=== PATIENT | male | born 1945 | race Caucasian/White ===

== ENCOUNTER 2020-02-17 17:07 | Emergency (ER) | payer MEDICARE, BC, MEDICAID ==
[2020-02-17] MEDS ORDERED: Sodium Chloride 0.9% 10 ML Syringe FLUSH PRN (17:19)
--- NOTE | 2020-02-17 17:23 | EDM.PDOC ---
ED HPI GENERAL MEDICAL PROBLEM - General Chief Complaint: Fever Stated Complaint: FEVER Time Seen by Provider: 02/17/20 17:15 Source of Information: Reports: Patient History Limitations: Reports: No Limitations - History of Present Illness INITIAL COMMENTS - FREE TEXT/NARRATIVE: 74 YO WM PRESENTS TO ER COMPLAINING OF FEVER AND HEADACHE WHICH BEGAN TODAY. PT REPORTS HE FELT FINE THIS AM WHEN HE WOKE BUT DEVELOPED A HEADACHE AROUND LUNCHTIME. PT HAD HIS TEMP CHECKED AND WAS FOUND TO BE FEBRILE PROMPTING ER EVALUATION. PT DENIES COUGH/CONGESTION, NO SHORTNESS OF BREATH OR CHEST PAIN. PT STATES HE FEELS BETTER AFTER MOTRIN. PT DENIES DYSURIA OR URINARY FREQUENCY. PT DENIES N/V OR ABDOMINAL PAIN. Onset: Today Location: Reports: Generalized Severity: Mild Improves with: Reports: Other (MOTRIN) Worsens with: Reports: None Associated Symptoms: Reports: Fever/Chills. Denies: Chest Pain, Cough, Malaise, Nausea/Vomiting, Shortness of Breath, Weakness - Related Data Allergies Allergy/AdvReac Type Severity Reaction Status Date / Time Penicillins Allergy Cannot Verified 02/17/20 18:37 Remember povidone-iodine Allergy Cannot Verified 02/17/20 18:37 [From Betadine] Remember soap [From Betadine] Allergy Cannot Verified 02/17/20 18:37 Remember tramadol Allergy Cannot Verified 02/17/20 18:37 Remember Home Meds: Home Meds Acetaminophen 650 mg PO Q4H PRN 11/26/17 [History] Acetaminophen [Tylenol] 650 mg PO BID@,18 11/26/17 [History] Aspirin [Ecotrin EC] 325 mg PO DAILY 11/26/17 [History] Dextran 70/Hypromellose [Artificial Tears] 2 drop EYEBOTH QID PRN 11/26/17 [History] Donepezil HCl [Aricept] 10 mg PO DAILY 11/26/17 [History] LORazepam [Ativan] 0.5 mg IM DAILY PRN 11/26/17 [History] Lisinopril 10 mg PO DAILY 11/26/17 [History] Loratadine [Claritin] 10 mg PO DAILY 11/26/17 [History] Menthol/Zinc Oxide [Calmoseptine] 1 applic TOP BID PRN 11/26/17 [History] Miconazole Nitrate [Athlete's Foot] 1 applic TOP BID PRN 11/26/17 [History] Multivitamin [Daily Multiple Vitamin] 1 tab PO DAILY 11/26/17 [History] OXcarbazepine [Trileptal] 450 mg PO BID@11/26/17 [History] Trolamine Salicylate [Asper-Flex] 1 applic TOP Q4H PRN 11/26/17 [History] atorvaSTATin [Lipitor] 10 mg PO DAILY@1800 11/26/17 [History] levETIRAcetam [Keppra] 1,500 mg PO BID@11/26/17 [History] Melatonin 3 mg PO BEDTIME@199902/17/20 [History] Past Medical History HEENT History: Reports: Allergic Rhinitis, Cataract, Impaired Vision, Other (See Below) Other HEENT History: Dry eye syndrome. Patient wears glasses. Nasal fracture as below. Cardiovascular History: Reports: High Cholesterol, Hypertension, Other (See Below) Other Cardiovascular History: Mixed hyperlipidemia Respiratory History: Reports: Bronchitis, Recurrent, COPD, Intubation, Previous, Pulmonary Fibrosis Gastrointestinal History: Reports: Colon Polyp, Gastritis, GERD, Hiatal Hernia, Other (See Below) Other Gastrointestinal History: Tubular adenoma in the sigmoid colon area esophagitis Genitourinary History: Reports: BPH, Chronic Renal Insuffiency, UTI, Recurrent Musculoskeletal History: Reports: Arthritis, Back Pain, Chronic, Fracture, Osteoarthritis, Other (See Below) Other Musculoskeletal History: Nasal fracture in the Neurological History: Reports: Alzheimers Disease, Brain Injury, CVA, Seizure, Other (See Below) Other Neuro History: 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 Psychiatric History: Reports: Alzheimers Disease, Anxiety, Dementia, Depression Immunologic History: Reports: None Oncologic (Cancer) History: Reports: None Dermatologic History: Reports: Other (See Below) Other Dermatologic History: Recurrent tinea corporis, chronic left heel ulcer - Infectious Disease History Infectious Disease History: Reports: Measles, MRSA, Mumps, Other (See Below) Other Infectious Disease History: Patient is uncertain about childhood illnesses. History of MRSA of the left foot in 2017 - Past Surgical History Head Surgeries/Procedures: Reports: Shunt HEENT Surgical History: Reports: Adenoidectomy, Naso-Sinus Surgery, Oral Surgery, Tonsillectomy, Other (See Below) Other HEENT Surgeries/Procedures: Unknown type of nasal sinus surgery in the GI Surgical History: Reports: Appendectomy, Colonoscopy, Polypectomy, Other (See Below) Other GI Surgeries/Procedures: Appendectomy at about age 17. Colonoscopy in the excision of tubular adenoma from the sigmoid colon Male Surgical History: Reports: Circumcision, Vasectomy, Other (See Below) Other Male Surgeries/Procedures: Circumcision as an . Vasectomy in about 1976 Musculoskeletal Surgical History: Reports: None, Arthroscopic Knee, Arthroscopic Procedure, Other (See Below) Other Musculoskeletal Surgeries/Procedures:: Bilateral knee arthroscopic repair Oncologic Surgical History: Reports: None - Past Imaging History Past Imaging History: Reports: CAT Scan (CT of the head on 12/09/11), EEG (02/24/12), MRA (As below), MRI (MRI and MRA of the brain on 02/25/12), Venous Doppler (Venous Doppler study of the right leg on 05/13/16 with additional evaluation of the left leg on 10/17/16) Social & Family History - Family History Family Medical History: Unobtainable Cardiac: Reports: CAD, NM, Other (See Below) Other Cardiac Family History: Father with NM in his 60s Neurological: Reports: Other (See Below) Other Neurological Family History: Brother from meningitis at age 18 - Caffeine Use Caffeine Use: Reports: Soda. 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) ED ROS GENERAL - Review of Systems Review Of Systems: See Below Constitutional: Reports: Fever, Chills HEENT: Reports: No Symptoms Respiratory: Reports: No Symptoms Cardiovascular: Reports: No Symptoms Endocrine: Reports: No Symptoms GI/Abdominal: Reports: No Symptoms : Reports: No Symptoms Musculoskeletal: Reports: No Symptoms Skin: Reports: No Symptoms Neurological: Reports: No Symptoms Psychiatric: Reports: No Symptoms Hematologic/Lymphatic: Reports: No Symptoms Immunologic: Reports: No Symptoms ED EXAM, SEPSIS - Physical Exam Exam: See Below Exam Limited By: No Limitations General Appearance: Alert, WD/WN, No Apparent Distress Eye Exam: Bilateral Eye: PERRL Ears: Normal External Exam, Normal Canal, Hearing Grossly Normal, Normal TMs Nose: Normal Inspection, Normal Mucosa, No Blood Throat/Mouth: Normal Inspection, Normal Lips, Normal Teeth, Normal Gums, Normal Oropharynx, Normal Voice, No Airway Compromise Head: Atraumatic, Normocephalic Neck: Normal Inspection, Supple, Non-Tender, Full Range of Motion Respiratory/Chest: No Respiratory Distress, Lungs Clear, Normal Breath Sounds, No Accessory Muscle Use, Chest Non-Tender Cardiovascular: Normal Peripheral Pulses, Regular Rate, Rhythm, No Edema, No Gallop, No JVD, No Murmur, No Rub GI/Abdominal Exam: Normal Bowel Sounds, Soft, Non-Tender, No Organomegaly, No Distention, No Abnormal Bruit, No Mass, Pelvis Stable Back: Normal Inspection, Full Range of Motion, NT Extremities: Normal Inspection, Normal Range of Motion, Non-Tender, No Pedal Edema, Normal Capillary Refill Neurological: Alert, Oriented, CN II-XII Intact, Normal Cognition, Normal Gait, Normal Reflexes, No Motor/Sensory Deficits Psychiatric: Normal Affect, Normal Mood Skin: Warm, Dry, Intact, Normal Color, No Rash Lymphatic: Bilateral: No Adenopathy Course - Vital Signs Last Recorded V/S: Last Vital Signs Temp 38.6 C H 02/17/20 18:29 Pulse Resp BP Pulse Ox - Orders/Labs/Meds Orders: Active Orders 24 hr Category Date Time Status CULTURE BLOOD [BC] Stat Lab 02/17/20 15:25 Received CULTURE BLOOD [BC] Stat Lab 02/17/20 17:45 Received UA W/MICROSCOPIC [URIN] Stat Lab 02/17/20 18:34 Received Sodium Chloride 0.9% [Saline Flush] Med 02/17/20 17:19 Active 10 ml FLUSH Q8HR PRN Blood Culture x2 Reflex Set [OM.PC] Stat Oth 02/17/20 17:19 Ordered Isolation [COMM] Routine Oth 02/17/20 17:21 Ordered Saline Lock Insert [OM.PC] Stat Oth 02/17/20 17:19 Ordered Severe Sepsis Onset Time [OM.PC] Stat Ot 02/17/20 17:19 Ordered Medication Orders Sodium Chloride (Saline Flush) 10 ml FLUSH Q8HR PRN PRN Reason: keep vein open Labs: Laboratory Tests 02/17/20 02/17/20 02/17/20 Range/Units 15:25 15:25 15:25 WBC 11.06 H (5.00-10.00) 10^3/uL RBC 5.22 (4.50-6.00) 10^6/uL Hgb 16.2 (13.0-17.0) g/dL Hct 48.3 (40.0-52.0) % MCV 92.5 H (82.0-92.0) fL MCH 31.0 (27.0-31.0) pg MCHC 33.5 (32.0-36.0) g/dL RDW 12.2 (11.5-14.5) % Plt Count 312 (150-400) 10^3/uL MPV 9.0 (7.4-10.4) fL Immature Gran % (Auto) 0.5 (0.0-5.0) % Neut % (Auto) 86.3 H (50.0-70.0) % Lymph % (Auto) 6.6 L (20.0-40.0) % Frontier % (Auto) 6.4 (2.0-8.0) % Eos % (Auto) 0.0 L (1.0-3.0) % Baso % (Auto) 0.2 (0.0-1.0) % Neut # (Auto) 9.55 H (2.50-7.00) 10^3/uL Lymph # (Auto) 0.73 L (1.00-4.00) 10^3/uL Frontier # (Auto) 0.71 (0.10-0.80) 10^3/uL Eos # (Auto) 0.00 L (0.10-0.30) 10^3/uL Baso # (Auto) 0.02 (0.00-0.10) 10^3/uL Immature Gran # (Auto) 0.05 (0.00-0.50) 10^3/uL Sodium 139 (136-145) mmol/L Potassium 4.6 (3.3-5.3) mmol/L Chloride 101 (98-115) mmol/L Carbon Dioxide 31.2 (21.0-32.0) mmol/L Anion Gap 11.4 (5-15) mmol/L BUN 13 (6-25) mg/dL Creatinine 0.93 (0.51-1.17) mg/dL Est Cr Clr Drug Dosing TNP Estimated GFR (MDRD) > 60 mL/min Glucose 118 H (75 - 99) mg/dL Lactic Acid 1.7 (0.4-2.0) mmol/L Calcium 9.8 (8.7-10.3) mg/dL Total Bilirubin 0.4 (0.2-1.0) mg/dL AST 32 (15-37) U/L ALT 50 (12-78) U/L Alkaline Phosphatase 184 H (46-116) IU/L Total Protein 8.3 H (6.4-8.2) g/dL Albumin 4.02 (3.00-4.80) g/dL COVID-19 (JENNIFER) (NEGATIVE) 02/17/20 Range/Units 17:40 WBC (5.00-10.00) 10^3/uL RBC (4.50-6.00) 10^6/uL Hgb (13.0-17.0) g/dL Hct (40.0-52.0) % MCV (82.0-92.0) fL MCH (27.0-31.0) pg MCHC (32.0-36.0) g/dL RDW (11.5-14.5) % Plt Count (150-400) 10^3/uL MPV (7.4-10.4) fL Immature Gran % (Auto) (0.0-5.0) % Neut % (Auto) (50.0-70.0) % Lymph % (Auto) (20.0-40.0) % Frontier % (Auto) (2.0-8.0) % Eos % (Auto) (1.0-3.0) % Baso % (Auto) (0.0-1.0) % Neut # (Auto) (2.50-7.00) 10^3/uL Lymph # (Auto) (1.00-4.00) 10^3/uL Frontier # (Auto) (0.10-0.80) 10^3/uL Eos # (Auto) (0.10-0.30) 10^3/uL Baso # (Auto) (0.00-0.10) 10^3/uL Immature Gran # (Auto) (0.00-0.50) 10^3/uL Sodium (136-145) mmol/L Potassium (3.3-5.3) mmol/L Chloride (98-115) mmol/L Carbon Dioxide (21.0-32.0) mmol/L Anion Gap (5-15) mmol/L BUN (6-25) mg/dL Creatinine (0.51-1.17) mg/dL Est Cr Clr Drug Dosing Estimated GFR (MDRD) mL/min Glucose (75 - 99) mg/dL Lactic Acid (0.4-2.0) mmol/L Calcium (8.7-10.3) mg/dL Total Bilirubin (0.2-1.0) mg/dL AST (15-37) U/L ALT (12-78) U/L Alkaline Phosphatase (46-116) IU/L Total Protein (6.4-8.2) g/dL Albumin (3.00-4.80) g/dL COVID-19 (JENNIFER) Negative (NEGATIVE) Meds: Medications Generic Name Dose Route Start Last Admin Trade Name Freq PRN Reason Stop Dose Admin Sodium Chloride 10 ml 02/17/20 17:19 Saline Flush FLUSH Q8HR PRN keep vein open Discontinued Medications Generic Name Dose Route Start Last Admin Trade Name Freq PRN Reason Stop Dose Admin Acetaminophen 1,000 mg 02/17/20 17:20 02/17/20 18:29 Tylenol Extra Strength PO 02/17/20 17:21 1,000 mg ONETIME ONE Administration Sodium Chloride 1,000 mls @ 1,000 mls/hr 02/17/20 17:19 02/17/20 18:23 Normal Saline IV 02/17/20 18:18 1,000 mls/hr BOLUS ONE Administration - Radiology Interpretation Free Text/Narrative:: CXR- NAD - Re-Assessments/Exams Free Text/Narrative Re-Assessment/Exam: 02/17/20 18:52 DISCUSSED CASE WITH RAYNE HASSAN- WILL SEND PAT[facility]. WILL GIVE ROCEPHIN 1G IV X 1 AND ORDER A UA OUTPATIENT SINCE CATH IN ER WAS UNSUCCESSFUL AND PATIENT STATES HE DOESN'T HAVE URGE TO GO. Departure - Departure Time of Disposition: 18:38 Disposition: DC/Tfer to SNF 03 Condition: Fair Clinical Impression: Fever Qualifiers: Encounter type: initial encounter Urinary tract infection Qualifiers: Urinary tract infection type: acute cystitis Hematuria presence: without hematuria Qualified Code(s): N30.00 - Acute cystitis without hematuria - Discharge Information Instructions: Urinary Tract Infection, Adult, Fever, Adult, [id number] Referrals: Dolores Warner MD [Primary Care Provider] - Forms: ED Department Discharge Additional Instructions: 1. DISCHARGE TO [facility] PER RAYNE HASSAN 2. ROCEPHIN 1G IM X 3 DAYS AT [facility] PER RAYNE GRAJEDA 3. SUPPORTIVE CARE 4. TYLENOL 1000MG EVERY 6 HOURS NEEDED FOR FEVER 5. COVID TEST-NEGATIVE Sepsis Event Note (ED) - Focused Exam Vital Signs: Vital Signs Temp 02/17/20 18:29 38.6 C H - My Orders Last 24 Hours: My Active Orders 02/17/20 15:25 CULTURE BLOOD [BC] Stat 02/17/20 17:19 Sodium Chloride 0.9% [Saline Flush] 10 ml FLUSH Q8HR PRN Blood Culture x2 Reflex Set [OM.PC] Stat Saline Lock Insert [OM.PC] Stat Severe Sepsis Onset Time [OM.PC] Stat 02/17/20 17:21 Isolation [COMM] Routine 02/17/20 17:45 CULTURE BLOOD [BC] Stat 02/17/20 18:34 UA W/MICROSCOPIC [URIN] Stat - Assessment/Plan Last 24 Hours: My Active Orders 02/17/20 15:25 CULTURE BLOOD [BC] Stat 02/17/20 17:19 Sodium Chloride 0.9% [Saline Flush] 10 ml FLUSH Q8HR PRN Blood Culture x2 Reflex Set [OM.PC] Stat Saline Lock Insert [OM.PC] Stat Severe Sepsis Onset Time [OM.PC] Stat 02/17/20 17:21 Isolation [COMM] Routine 02/17/20 17:45 CULTURE BLOOD [BC] Stat 02/17/20 18:34 UA W/MICROSCOPIC [URIN] Stat Assessment:: 1. FEVER 2. CEPHALGIA-MILD AND RESOLVED AFTER TYLENOL Plan: 1. DISCHARGE TO [facility] PER RAYNE HASSAN 2. ROCEPHIN 1G IM X 3 DAYS AT [facility] PER RAYNE GRAJEDA 3. SUPPORTIVE CARE 4. TYLENOL 1000MG EVERY 6 HOURS NEEDED FOR FEVER 5. COVID TEST-NEGATIVE
--- NOTE | 2020-02-17 18:03 | CR ---
[id number] RAD/RAD Chest PA or AP 1V EXAM: FRONTAL CHEST INDICATION: FEVER. COMPARISON: None. DISCUSSION: Hypoinflation with mild basilar atelectasis. No definite infiltrates. Normal heart size. Changes suggesting remote left acromioclavicular separation injury. IMPRESSION: 1. Low lung volumes. No definite infiltrates. Afshin King MD 02/17/20 [id number] Thank you for allowing us to participate in the care of your patient.
[2020-02-17 18:05] LABS: ANION GAP 11.4 mmol/L (5-15); CHLORIDE,CL 101 mmol/L (98-115); SODIUM,NA 139 mmol/L (136-145)
[2020-02-17] MEDS: Sodium Chloride 0.9% 1,000 ML IV ONE (18:23)
[2020-02-17] MEDS: Acetaminophen 500 MG Tab PO ONE (18:29)
[2020-02-17] MEDS: cefTRIAXone 1 GM Vial IVPUSH ONE (19:10)
== END 2020-02-17 19:30 ==
LOC: KA.ED 17:07
DX: N30.00 Acute cystitis without hematuria (principal); E78.00 Pure hypercholesterolemia, unspecified; J44.9 Chronic obstructive pulmonary disease, unspecified; R56.9 Unspecified convulsions; G30.9 Alzheimer's disease, unspecified; F02.80 Dementia in other diseases classified elsewhere, unspecified severity, without behavioral disturbance, psychotic disturbance, mood disturbance, and anxiety; Z20.828 Contact with and (suspected) exposure to other viral communicable diseases; Z88.0 Allergy status to penicillin; Z91.048 Other nonmedicinal substance allergy status; Z88.5 Allergy status to narcotic agent; Z79.82 Long term (current) use of aspirin; Z79.899 Other long term (current) drug therapy; I12.9 Hypertensive chronic kidney disease with stage 1 through stage 4 chronic kidney disease, or unspecified chronic kidney disease; N18.9 Chronic kidney disease, unspecified; Z86.73 Personal history of transient ischemic attack (TIA), and cerebral infarction without residual deficits
CPT/HCPCS: 36415; 71045; 80053; 81001; 83605; 85025; 87040; 87086; 87804; 96374; 99284; 99285-25; A9270-GY; J0696; J7030; U0002

== ENCOUNTER 2024-01-13 13:32 | Inpatient (IN) | payer MEDICARE, MEDICAID ==
[2024-01-13] MEDS ORDERED: Sodium Chloride 0.9% 10 ML Syringe FLUSH PRN (13:42)
[2024-01-13 13:58] LABS: BASOPHILS ABSOLUTE AUTO 0.03 10^3/uL (0.00-0.10); BASOPHILS PERCENT AUTO 0.2 % (0.0-1.0); EOSINOPHILS ABSOLUTE AUTO 0.13 10^3/uL (0.10-0.30); EOSINOPHILS PERCENT AUTO 0.9 % (1.0-3.0); HEMATOCRIT 52.3 % (40.0-52.0); HEMOGLOBIN 17.1 g/dL (13.0-17.0); IMMATURE GRAN ABSOLUTE AUTO 0.03 10^3/uL (0.00-0.50); IMMATURE GRAN PERCENT AUTO 0.2 % (0.0-5.0); LYMPHOCYTES ABSOLUTE AUTO 1.01 10^3/uL (1.00-4.00); LYMPHOCYTES PERCENT AUTO 7.3 % (20.0-40.0); MEAN CORPUSCULAR HEMOGLOBIN 31.4 pg (27.0-31.0); MEAN CORPUSCULAR HGB CONC 32.7 g/dL (32.0-36.0); MEAN CORPUSCULAR VOLUME 96.1 fL (82.0-92.0); MONOCYTES ABSOLUTE AUTO 1.61 10^3/uL (0.10-0.80); MONOCYTES PERCENT AUTO 11.7 % (2.0-8.0); NEUTROPHILS ABSOLUTE AUTO 10.95 10^3/uL (2.50-7.00); NEUTROPHILS PERCENT AUTO 79.7 % (50.0-70.0); PLATELET COUNT,PLT 311 10^3/uL (150-400); RED BLOOD CELL COUNT 5.44 10^6/uL (4.50-6.00); RED CELL DISTRIBUTION WIDTH 13.1 % (11.5-14.5); WHITE BLOOD CELL COUNT,WBC 13.76 10^3/uL (5.00-10.00)
[2024-01-13 14:38] LABS: ALBUMIN 3.29 g/dL (3.40-5.00); ANION GAP 11.5 mmol/L (5-15); BILIRUBIN TOTAL 1.1 mg/dL (0.2-1.0); CALCIUM 10.6 mg/dL (8.7-10.3); CARBON DIOXIDE,CO2 31.3 mmol/L (21.0-32.0); CREATININE 1.69 mg/dL (0.51-1.17); EST CRCL DRUG DOSING (CG) 37.8 mL/min; LACTIC ACID 2.3 mmol/L (0.4-2.0); POTASSIUM,K 3.8 mmol/L (3.5-5.1); PROTEIN TOTAL,TP 7.6 g/dL (6.4-8.2)
[2024-01-13] MEDS: Sodium Chloride 0.9% 100 ML IV SCH ×2 (15:03→23:00)
[2024-01-13] MEDS: Iopamidol 755 Mg/ML 100 ML Bottle IV ONE (15:03)
[2024-01-13] MEDS: Sodium Chloride 0.9% 1,000 ML IV ONE (15:08)
[2024-01-13] MEDS ORDERED: Heparin Sodium 5,000 Units/ML Vial IVPUSH ONE (15:54)
[2024-01-13] MEDS ORDERED: Heparin Sodium/D5W 250 ML IV SCH (16:15)
[2024-01-13] MEDS: Heparin Sodium 5,000 Units/ML Vial IVPUSH ONE (16:15)
[2024-01-13] MEDS: Heparin Sodium/D5W 250 ML IV STA (16:27)
[2024-01-13] MEDS ORDERED: Heparin Sodium/D5W 500 ML IV SCH (20:15)
[2024-01-13] MEDS ORDERED: Albuterol/Ipratropium 3.0-0.5 MG/3 ML Neb Soln NEB PRN (20:46)
[2024-01-13] MEDS ORDERED: PEG 400/Hypromellose/Glycerin 15 ML Bottle EYEBOTH PRN (20:51)
[2024-01-13] MEDS ORDERED: LORazepam Conc Solution 2 MG/ML 30 ML Bottle PO PRN (20:57)
[2024-01-13] MEDS ORDERED: MICONAZOLE NITRATE 71 GM TOP SCH (21:00)
[2024-01-13] MEDS: Heparin Sodium/D5W 250 ML IV SCH (21:18)
[2024-01-13] MEDS: Acetaminophen 325 MG Tab PO PRN (22:28)
[2024-01-13] MEDS: Donepezil 10 MG Tab PO SCH (22:28)
[2024-01-13] MEDS: atorvaSTATin 10 MG Tab PO SCH (22:30)
[2024-01-13] MEDS: cefTRIAXone 1 GM Vial IVPUSH SCH (22:33)
[2024-01-13] MEDS: Azithromycin 250 MG in Sodium Chloride 0.9% 250 ML IV SCH (22:33)
[2024-01-13] MEDS: Formoterol/Mometasone 100-5 MCG 8.8 GM Inhaler INH SCH (22:34)
[2024-01-14 07:30] LABS: BASOPHILS ABSOLUTE AUTO 0.03 10^3/uL (0.00-0.10); BASOPHILS PERCENT AUTO 0.3 % (0.0-1.0); EOSINOPHILS ABSOLUTE AUTO 0.38 10^3/uL (0.10-0.30); EOSINOPHILS PERCENT AUTO 3.8 % (1.0-3.0); HEMATOCRIT 46.9 % (40.0-52.0); HEMOGLOBIN 15.3 g/dL (13.0-17.0); IMMATURE GRAN ABSOLUTE AUTO 0.05 10^3/uL (0.00-0.50); IMMATURE GRAN PERCENT AUTO 0.5 % (0.0-5.0); LYMPHOCYTES ABSOLUTE AUTO 1.09 10^3/uL (1.00-4.00); LYMPHOCYTES PERCENT AUTO 10.8 % (20.0-40.0); MEAN CORPUSCULAR HEMOGLOBIN 31.7 pg (27.0-31.0); MEAN CORPUSCULAR HGB CONC 32.6 g/dL (32.0-36.0); MEAN CORPUSCULAR VOLUME 97.3 fL (82.0-92.0); MEAN PLATELET VOLUME 9.3 fL (7.4-10.4); MONOCYTES ABSOLUTE AUTO 1.18 10^3/uL (0.10-0.80); MONOCYTES PERCENT AUTO 11.7 % (2.0-8.0); NEUTROPHILS ABSOLUTE AUTO 7.35 10^3/uL (2.50-7.00); NEUTROPHILS PERCENT AUTO 72.9 % (50.0-70.0); PLATELET COUNT,PLT 255 10^3/uL (150-400); RED BLOOD CELL COUNT 4.82 10^6/uL (4.50-6.00); RED CELL DISTRIBUTION WIDTH 13.1 % (11.5-14.5); WHITE BLOOD CELL COUNT,WBC 10.08 10^3/uL (5.00-10.00)
[2024-01-14 07:54] LABS: ALBUMIN 2.69 g/dL (3.40-5.00); BILIRUBIN TOTAL 0.6 mg/dL (0.2-1.0); CALCIUM 9.7 mg/dL (8.7-10.3); CARBON DIOXIDE,CO2 31.8 mmol/L (21.0-32.0); CREATININE 1.13 mg/dL (0.51-1.17); EST CRCL DRUG DOSING (CG) 56.53 mL/min; POTASSIUM,K 3.8 mmol/L (3.5-5.1); PROTEIN TOTAL,TP 6.4 g/dL (6.4-8.2)
[2024-01-14] MEDS: Aspirin 81 MG Tab.Chew PO SCH (08:39)
[2024-01-14] MEDS: Tiotropium Bromide 4 GM Inhalation Spray (2.5mcg/1 dose; 10 doses) INH SCH (08:40)
[2024-01-14] MEDS: levETIRAcetam 500 MG Tab PO SCH (08:40)
[2024-01-14] MEDS: Multivitamins with Minerals/Iron/Folic Acid/Lycopene Tab PO SCH (08:40)
[2024-01-14] MEDS: Loratadine 10 MG Tab PO SCH (08:40)
[2024-01-14] MEDS: Lisinopril 10 MG Tab PO SCH (10:08)
[2024-01-14] MEDS: OXCARBAZEPINE 300 MG PO SCH (11:53)
[2024-01-14] MEDS: Enoxaparin 100 MG/1 ML Syringe SUBCUT SCH (11:53)
[2024-01-14] MEDS ORDERED: MICONAZOLE NITRATE 71 GM TOP SCH (13:30)
[2024-01-14] MEDS ORDERED: Sodium Chloride 0.9% 10 ML Syringe FLUSH PRN (15:39)
[2024-01-14] MEDS: MICONAZOLE NITRATE 71 GM TOP SCH (20:51)
[2024-01-15] MEDS: Furosemide 40 MG/4 ML VIAL IVPUSH ONE (11:14)
[2024-01-15] MEDS: Apixaban 5 MG Tab PO SCH (20:28)
[2024-01-16 07:25] LABS: BASOPHILS ABSOLUTE AUTO 0.02 10^3/uL (0.00-0.10); BASOPHILS PERCENT AUTO 0.3 % (0.0-1.0); EOSINOPHILS ABSOLUTE AUTO 0.41 10^3/uL (0.10-0.30); EOSINOPHILS PERCENT AUTO 5.9 % (1.0-3.0); HEMATOCRIT 38.8 % (40.0-52.0); HEMOGLOBIN 13.3 g/dL (13.0-17.0); IMMATURE GRAN ABSOLUTE AUTO 0.04 10^3/uL (0.00-0.50); IMMATURE GRAN PERCENT AUTO 0.6 % (0.0-5.0); LYMPHOCYTES ABSOLUTE AUTO 0.86 10^3/uL (1.00-4.00); LYMPHOCYTES PERCENT AUTO 12.4 % (20.0-40.0); MEAN CORPUSCULAR HEMOGLOBIN 32.4 pg (27.0-31.0); MEAN CORPUSCULAR HGB CONC 34.3 g/dL (32.0-36.0); MEAN CORPUSCULAR VOLUME 94.4 fL (82.0-92.0); MEAN PLATELET VOLUME 9.1 fL (7.4-10.4); MONOCYTES ABSOLUTE AUTO 1.14 10^3/uL (0.10-0.80); MONOCYTES PERCENT AUTO 16.5 % (2.0-8.0); NEUTROPHILS ABSOLUTE AUTO 4.45 10^3/uL (2.50-7.00); NEUTROPHILS PERCENT AUTO 64.3 % (50.0-70.0); PLATELET COUNT,PLT 231 10^3/uL (150-400); RED BLOOD CELL COUNT 4.11 10^6/uL (4.50-6.00); RED CELL DISTRIBUTION WIDTH 12.3 % (11.5-14.5); WHITE BLOOD CELL COUNT,WBC 6.92 10^3/uL (5.00-10.00)
[2024-01-16 07:51] LABS: ALBUMIN 2.39 g/dL (3.40-5.00); ANION GAP 8.5 mmol/L (5-15); BILIRUBIN TOTAL 0.5 mg/dL (0.2-1.0); CALCIUM 9.1 mg/dL (8.7-10.3); CARBON DIOXIDE,CO2 31.3 mmol/L (21.0-32.0); CREATININE 0.84 mg/dL (0.51-1.17); EST CRCL DRUG DOSING (CG) 76.04 mL/min; POTASSIUM,K 3.8 mmol/L (3.5-5.1); PROTEIN TOTAL,TP 5.9 g/dL (6.4-8.2)
[2024-01-16 18:02] LABS: KEPPRA 51 ug/mL (10-40)
[2024-01-17 21:07] LABS: OXCARB/ESLICRBMETAB 19 ug/mL (3-35)
== END 2024-01-16 13:27 | DRG 175 ==
LOC: KA.ED 13:32 → UNDOADMIN 17:41 → KA.MS 17:41
PROVIDERS: ADMIT Internal Medicine; ATTEND Internal Medicine
DX: I26.94 Multiple subsegmental thrombotic pulmonary emboli without acute cor pulmonale (principal); I26.99 Other pulmonary embolism without acute cor pulmonale; J18.9 Pneumonia, unspecified organism; R74.01 Elevation of levels of liver transaminase levels; R79.1 Abnormal coagulation profile; E78.00 Pure hypercholesterolemia, unspecified; I10 Essential (primary) hypertension; E78.5 Hyperlipidemia, unspecified; J96.01 Acute respiratory failure with hypoxia; Z88.5 Allergy status to narcotic agent; Z91.041 Radiographic dye allergy status; F02.83 Dementia in other diseases classified elsewhere, unspecified severity, with mood disturbance; F02.84 Dementia in other diseases classified elsewhere, unspecified severity, with anxiety; I69.151 Hemiplegia and hemiparesis following nontraumatic intracerebral hemorrhage affecting right dominant side; G40.909 Epilepsy, unspecified, not intractable, without status epilepticus; J44.9 Chronic obstructive pulmonary disease, unspecified; Z51.5 Encounter for palliative care; Z66 Do not resuscitate; H54.7 Unspecified visual loss; E78.2 Mixed hyperlipidemia; K21.9 Gastro-esophageal reflux disease without esophagitis; N40.0 Benign prostatic hyperplasia without lower urinary tract symptoms; I12.9 Hypertensive chronic kidney disease with stage 1 through stage 4 chronic kidney disease, or unspecified chronic kidney disease; N18.9 Chronic kidney disease, unspecified; M19.90 Unspecified osteoarthritis, unspecified site; G30.9 Alzheimer's disease, unspecified; Z88.0 Allergy status to penicillin; Z88.8 Allergy status to other drugs, medicaments and biological substances; Z91.048 Other nonmedicinal substance allergy status; Z79.82 Long term (current) use of aspirin; Z79.899 Other long term (current) drug therapy; Z87.81 Personal history of (healed) traumatic fracture; Z87.19 Personal history of other diseases of the digestive system; Z98.890 Other specified postprocedural states; Z90.89 Acquired absence of other organs; Z90.49 Acquired absence of other specified parts of digestive tract
CPT/HCPCS: 36415; 70450; 71045; 71275; 80053; 80177; 80183; 83605; 83880; 84484; 85025; 85379; 85730; 87040; 96361; 96365; 99285-25; A9270-GY; J0456; J0696; J1644; J1650; J1940; J3490; J7030; J7050; Q3014; Q9967

== ENCOUNTER 2024-11-05 12:25 | Inpatient (IN) | payer MEDICARE, MEDICAID ==
[2024-11-05 13:00] LABS: BASOPHILS ABSOLUTE AUTO 0.01 10^3/uL (0.00-0.10); BASOPHILS PERCENT AUTO 0.1 % (0.0-1.0); HEMOGLOBIN 12.6 g/dL (13.0-17.0); IMMATURE GRAN ABSOLUTE AUTO 0.14 10^3/uL (0.00-0.04); IMMATURE GRAN PERCENT AUTO 0.9 % (0.0-0.4); LYMPHOCYTES ABSOLUTE AUTO 0.76 10^3/uL (1.00-4.00); LYMPHOCYTES PERCENT AUTO 4.9 % (20.0-40.0); MEAN CORPUSCULAR HEMOGLOBIN 30.9 pg (27.0-31.0); MEAN CORPUSCULAR HGB CONC 32.3 g/dL (32.0-36.0); MEAN CORPUSCULAR VOLUME 95.6 fL (82.0-92.0); MEAN PLATELET VOLUME 9.2 fL (7.4-10.4); MONOCYTES ABSOLUTE AUTO 0.97 10^3/uL (0.10-0.80); MONOCYTES PERCENT AUTO 6.3 % (2.0-8.0); NEUTROPHILS ABSOLUTE AUTO 13.59 10^3/uL (2.50-7.00); NEUTROPHILS PERCENT AUTO 87.8 % (50.0-70.0); PLATELET COUNT,PLT 412 10^3/uL (150-400); RED BLOOD CELL COUNT 4.08 10^6/uL (4.50-6.00); RED CELL DISTRIBUTION WIDTH 13.2 % (11.5-14.5); WHITE BLOOD CELL COUNT,WBC 15.47 10^3/uL (5.00-10.00)
[2024-11-05 13:16] LABS: ALBUMIN 3.07 g/dL (3.40-5.00); ANION GAP 12.7 mmol/L (5-15); BILIRUBIN TOTAL 0.3 mg/dL (0.2-1.0); CALCIUM 9.9 mg/dL (8.7-10.3); CARBON DIOXIDE,CO2 25.3 mmol/L (21.0-32.0); CREATININE 1.31 mg/dL (0.51-1.17); EST CRCL DRUG DOSING (CG) 48.76 mL/min; PROTEIN TOTAL,TP 6.5 g/dL (6.4-8.2)
[2024-11-05] MEDS: Sodium Chloride 0.9% 1,000 ML IV ONE ×3 (13:35→16:08)
[2024-11-05 15:15] LABS: ANION GAP 11.4 mmol/L (5-15); CALCIUM 9.5 mg/dL (8.7-10.3); CARBON DIOXIDE,CO2 26.2 mmol/L (21.0-32.0); CREATININE 1.21 mg/dL (0.51-1.17); EST CRCL DRUG DOSING (CG) 52.79 mL/min; POTASSIUM,K 5.6 mmol/L (3.5-5.1)
[2024-11-05] MEDS: cefTRIAXone 2 GM Vial IVPUSH ONE (16:09)
[2024-11-05] MEDS ORDERED: Acetaminophen 325 MG Tab PO PRN (21:11)
[2024-11-05] MEDS ORDERED: Ondansetron 4 MG/2 ML SDV IV PRN (21:11)
[2024-11-05] MEDS ORDERED: Lactated Ringers 1,000 ML IV SCH (21:15)
[2024-11-05 21:37] LABS: BASOPHILS ABSOLUTE AUTO 0.01 10^3/uL (0.00-0.10); BASOPHILS PERCENT AUTO 0.1 % (0.0-1.0); HEMATOCRIT 33.5 % (40.0-52.0); HEMOGLOBIN 11.1 g/dL (13.0-17.0); IMMATURE GRAN ABSOLUTE AUTO 0.07 10^3/uL (0.00-0.04); IMMATURE GRAN PERCENT AUTO 0.5 % (0.0-0.4); LYMPHOCYTES ABSOLUTE AUTO 1.25 10^3/uL (1.00-4.00); LYMPHOCYTES PERCENT AUTO 9.7 % (20.0-40.0); MEAN CORPUSCULAR HEMOGLOBIN 31.4 pg (27.0-31.0); MEAN CORPUSCULAR HGB CONC 33.1 g/dL (32.0-36.0); MEAN CORPUSCULAR VOLUME 94.6 fL (82.0-92.0); MEAN PLATELET VOLUME 9.1 fL (7.4-10.4); MONOCYTES ABSOLUTE AUTO 1.42 10^3/uL (0.10-0.80); NEUTROPHILS PERCENT AUTO 78.7 % (50.0-70.0); PLATELET COUNT,PLT 346 10^3/uL (150-400); RED BLOOD CELL COUNT 3.54 10^6/uL (4.50-6.00); RED CELL DISTRIBUTION WIDTH 13.6 % (11.5-14.5); WHITE BLOOD CELL COUNT,WBC 12.95 10^3/uL (5.00-10.00)
[2024-11-05 21:45] LABS: ANION GAP 12.6 mmol/L (5-15); CALCIUM 9.8 mg/dL (8.7-10.3); CARBON DIOXIDE,CO2 24.6 mmol/L (21.0-32.0); CREATININE 0.92 mg/dL (0.51-1.17); EST CRCL DRUG DOSING (CG) 69.43 mL/min; POTASSIUM,K 5.2 mmol/L (3.5-5.1)
[2024-11-05 21:54] LABS: LACTIC ACID 2.5 mmol/L (0.4-2.0)
[2024-11-05] MEDS: Acetaminophen 325 MG Tab PO SCH (22:22)
[2024-11-05] MEDS: Donepezil 10 MG Tab PO SCH (22:22)
[2024-11-05] MEDS: Sodium Chloride 0.9% 150 ML Bag IV PRN (22:22)
[2024-11-05] MEDS: levETIRAcetam 500 MG Tab PO SCH (22:22)
[2024-11-06] MEDS: Sodium Chloride 0.9% 1,000 ML IV SCH (03:15)
[2024-11-06] MEDS: Sodium Chloride 0.9% 1,000 ML ONE (03:35)
[2024-11-06 07:31] LABS: BASOPHILS ABSOLUTE AUTO 0.03 10^3/uL (0.00-0.10); BASOPHILS PERCENT AUTO 0.3 % (0.0-1.0); EOSINOPHILS ABSOLUTE AUTO 0.01 10^3/uL (0.10-0.30); EOSINOPHILS PERCENT AUTO 0.1 % (1.0-3.0); HEMATOCRIT 28.5 % (40.0-52.0); HEMOGLOBIN 9.4 g/dL (13.0-17.0); IMMATURE GRAN ABSOLUTE AUTO 0.05 10^3/uL (0.00-0.04); IMMATURE GRAN PERCENT AUTO 0.5 % (0.0-0.4); LYMPHOCYTES ABSOLUTE AUTO 1.45 10^3/uL (1.00-4.00); LYMPHOCYTES PERCENT AUTO 13.4 % (20.0-40.0); MEAN CORPUSCULAR HEMOGLOBIN 31.8 pg (27.0-31.0); MEAN CORPUSCULAR VOLUME 96.3 fL (82.0-92.0); MEAN PLATELET VOLUME 8.9 fL (7.4-10.4); MONOCYTES ABSOLUTE AUTO 1.12 10^3/uL (0.10-0.80); MONOCYTES PERCENT AUTO 10.4 % (2.0-8.0); NEUTROPHILS ABSOLUTE AUTO 8.14 10^3/uL (2.50-7.00); NEUTROPHILS PERCENT AUTO 75.3 % (50.0-70.0); PLATELET COUNT,PLT 315 10^3/uL (150-400); RED BLOOD CELL COUNT 2.96 10^6/uL (4.50-6.00); RED CELL DISTRIBUTION WIDTH 13.9 % (11.5-14.5)
[2024-11-06 07:48] LABS: ALBUMIN 2.6 g/dL (3.40-5.00); ANION GAP 9.7 mmol/L (5-15); BILIRUBIN TOTAL 0.2 mg/dL (0.2-1.0); CALCIUM 9.3 mg/dL (8.7-10.3); CARBON DIOXIDE,CO2 26.9 mmol/L (21.0-32.0); CREATININE 0.83 mg/dL (0.51-1.17); EST CRCL DRUG DOSING (CG) 76.96 mL/min; POTASSIUM,K 4.6 mmol/L (3.5-5.1); PROTEIN TOTAL,TP 5.3 g/dL (6.4-8.2)
[2024-11-06] MEDS ORDERED: levETIRAcetam 500 MG Tab PO SCH (08:00)
[2024-11-06] MEDS ORDERED: Acetaminophen 325 MG Tab PO SCH (08:00)
[2024-11-06 08:01] LABS: LACTIC ACID 2.3 mmol/L (0.4-2.0)
[2024-11-06] MEDS: Iopamidol 755 Mg/ML 100 ML Bottle IV ONE (08:30)
[2024-11-06] MEDS: Sodium Chloride 0.9% 100 ML IV SCH (08:30)
[2024-11-06] MEDS: Loratadine 10 MG Tab PO SCH (08:58)
[2024-11-06] MEDS: Cholecalciferol (Vitamin D3) 25 MCG Tab PO SCH (08:58)
[2024-11-06] MEDS ORDERED: MICONAZOLE NITRATE 71 GM TOP SCH (09:00)
[2024-11-06 13:00] LABS: BASOPHILS ABSOLUTE AUTO 0.05 10^3/uL (0.00-0.10); BASOPHILS PERCENT AUTO 0.5 % (0.0-1.0); EOSINOPHILS ABSOLUTE AUTO 0.04 10^3/uL (0.10-0.30); EOSINOPHILS PERCENT AUTO 0.4 % (1.0-3.0); HEMATOCRIT 28.8 % (40.0-52.0); HEMOGLOBIN 9.5 g/dL (13.0-17.0); IMMATURE GRAN ABSOLUTE AUTO 0.07 10^3/uL (0.00-0.04); IMMATURE GRAN PERCENT AUTO 0.6 % (0.0-0.4); LYMPHOCYTES ABSOLUTE AUTO 1.65 10^3/uL (1.00-4.00); MEAN CORPUSCULAR HEMOGLOBIN 32.1 pg (27.0-31.0); MEAN CORPUSCULAR VOLUME 97.3 fL (82.0-92.0); MONOCYTES ABSOLUTE AUTO 1.14 10^3/uL (0.10-0.80); MONOCYTES PERCENT AUTO 10.4 % (2.0-8.0); NEUTROPHILS ABSOLUTE AUTO 8.06 10^3/uL (2.50-7.00); NEUTROPHILS PERCENT AUTO 73.1 % (50.0-70.0); PLATELET COUNT,PLT 319 10^3/uL (150-400); RED BLOOD CELL COUNT 2.96 10^6/uL (4.50-6.00); WHITE BLOOD CELL COUNT,WBC 11.01 10^3/uL (5.00-10.00)
[2024-11-06] MEDS: cefTRIAXone 2 GM in Sodium Chloride 0.9% 50 ML IV SCH (15:42)
[2024-11-06] MEDS: atorvaSTATin 10 MG Tab PO SCH (18:07)
[2024-11-06] MEDS ORDERED: Donepezil 10 MG Tab PO SCH (21:00)
[2024-11-07 07:34] LABS: BASOPHILS ABSOLUTE AUTO 0.04 10^3/uL (0.00-0.10); BASOPHILS PERCENT AUTO 0.5 % (0.0-1.0); EOSINOPHILS ABSOLUTE AUTO 0.27 10^3/uL (0.10-0.30); EOSINOPHILS PERCENT AUTO 3.2 % (1.0-3.0); HEMATOCRIT 25.5 % (40.0-52.0); HEMOGLOBIN 8.4 g/dL (13.0-17.0); IMMATURE GRAN ABSOLUTE AUTO 0.09 10^3/uL (0.00-0.04); IMMATURE GRAN PERCENT AUTO 1.1 % (0.0-0.4); LYMPHOCYTES ABSOLUTE AUTO 1.65 10^3/uL (1.00-4.00); LYMPHOCYTES PERCENT AUTO 19.7 % (20.0-40.0); MEAN CORPUSCULAR HEMOGLOBIN 31.7 pg (27.0-31.0); MEAN CORPUSCULAR HGB CONC 32.9 g/dL (32.0-36.0); MEAN CORPUSCULAR VOLUME 96.2 fL (82.0-92.0); MEAN PLATELET VOLUME 8.8 fL (7.4-10.4); MONOCYTES ABSOLUTE AUTO 0.67 10^3/uL (0.10-0.80); NEUTROPHILS ABSOLUTE AUTO 5.66 10^3/uL (2.50-7.00); NEUTROPHILS PERCENT AUTO 67.5 % (50.0-70.0); PLATELET COUNT,PLT 255 10^3/uL (150-400); RED BLOOD CELL COUNT 2.65 10^6/uL (4.50-6.00); RED CELL DISTRIBUTION WIDTH 13.9 % (11.5-14.5); WHITE BLOOD CELL COUNT,WBC 8.38 10^3/uL (5.00-10.00)
[2024-11-07 07:47] LABS: ALBUMIN 2.55 g/dL (3.40-5.00); ANION GAP 9.9 mmol/L (5-15); BILIRUBIN TOTAL 0.2 mg/dL (0.2-1.0); CALCIUM 9.1 mg/dL (8.7-10.3); CARBON DIOXIDE,CO2 26.3 mmol/L (21.0-32.0); CREATININE 0.75 mg/dL (0.51-1.17); EST CRCL DRUG DOSING (CG) 85.17 mL/min; POTASSIUM,K 4.2 mmol/L (3.5-5.1)
[2024-11-07] MEDS: Apixaban 5 MG Tab PO SCH ×2 (10:33→21:08)
[2024-11-07] MEDS: Aspirin 81 MG Tab.EC PO ONE (10:34)
[2024-11-07 13:07] LABS: BASOPHILS ABSOLUTE AUTO 0.03 10^3/uL (0.00-0.10); BASOPHILS PERCENT AUTO 0.3 % (0.0-1.0); EOSINOPHILS ABSOLUTE AUTO 0.32 10^3/uL (0.10-0.30); EOSINOPHILS PERCENT AUTO 3.6 % (1.0-3.0); HEMATOCRIT 25.7 % (40.0-52.0); HEMOGLOBIN 8.3 g/dL (13.0-17.0); IMMATURE GRAN ABSOLUTE AUTO 0.08 10^3/uL (0.00-0.04); IMMATURE GRAN PERCENT AUTO 0.9 % (0.0-0.4); LYMPHOCYTES ABSOLUTE AUTO 1.41 10^3/uL (1.00-4.00); MEAN CORPUSCULAR HEMOGLOBIN 31.6 pg (27.0-31.0); MEAN CORPUSCULAR HGB CONC 32.3 g/dL (32.0-36.0); MEAN CORPUSCULAR VOLUME 97.7 fL (82.0-92.0); MEAN PLATELET VOLUME 8.6 fL (7.4-10.4); MONOCYTES ABSOLUTE AUTO 0.68 10^3/uL (0.10-0.80); MONOCYTES PERCENT AUTO 7.7 % (2.0-8.0); NEUTROPHILS ABSOLUTE AUTO 6.28 10^3/uL (2.50-7.00); NEUTROPHILS PERCENT AUTO 71.5 % (50.0-70.0); PLATELET COUNT,PLT 251 10^3/uL (150-400); RED BLOOD CELL COUNT 2.63 10^6/uL (4.50-6.00); RED CELL DISTRIBUTION WIDTH 13.6 % (11.5-14.5)
[2024-11-08 07:21] LABS: BASOPHILS ABSOLUTE AUTO 0.03 10^3/uL (0.00-0.10); BASOPHILS PERCENT AUTO 0.4 % (0.0-1.0); EOSINOPHILS ABSOLUTE AUTO 0.36 10^3/uL (0.10-0.30); EOSINOPHILS PERCENT AUTO 5.3 % (1.0-3.0); HEMATOCRIT 24.9 % (40.0-52.0); HEMOGLOBIN 8.4 g/dL (13.0-17.0); IMMATURE GRAN ABSOLUTE AUTO 0.05 10^3/uL (0.00-0.04); IMMATURE GRAN PERCENT AUTO 0.7 % (0.0-0.4); LYMPHOCYTES ABSOLUTE AUTO 1.26 10^3/uL (1.00-4.00); LYMPHOCYTES PERCENT AUTO 18.4 % (20.0-40.0); MEAN CORPUSCULAR HEMOGLOBIN 32.2 pg (27.0-31.0); MEAN CORPUSCULAR HGB CONC 33.7 g/dL (32.0-36.0); MEAN CORPUSCULAR VOLUME 95.4 fL (82.0-92.0); MEAN PLATELET VOLUME 8.8 fL (7.4-10.4); MONOCYTES ABSOLUTE AUTO 0.58 10^3/uL (0.10-0.80); MONOCYTES PERCENT AUTO 8.5 % (2.0-8.0); NEUTROPHILS ABSOLUTE AUTO 4.55 10^3/uL (2.50-7.00); NEUTROPHILS PERCENT AUTO 66.7 % (50.0-70.0); PLATELET COUNT,PLT 252 10^3/uL (150-400); RED BLOOD CELL COUNT 2.61 10^6/uL (4.50-6.00); RED CELL DISTRIBUTION WIDTH 13.3 % (11.5-14.5); WHITE BLOOD CELL COUNT,WBC 6.83 10^3/uL (5.00-10.00)
[2024-11-08 07:39] LABS: ALBUMIN 2.53 g/dL (3.40-5.00); ANION GAP 9.7 mmol/L (5-15); BILIRUBIN TOTAL 0.2 mg/dL (0.2-1.0); CARBON DIOXIDE,CO2 29.4 mmol/L (21.0-32.0); CREATININE 0.74 mg/dL (0.51-1.17); EST CRCL DRUG DOSING (CG) 86.32 mL/min; POTASSIUM,K 4.1 mmol/L (3.5-5.1); PROTEIN TOTAL,TP 5.2 g/dL (6.4-8.2)
[2024-11-08] MEDS ORDERED: Aspirin 81 MG Tab.EC PO SCH (08:00)
[2024-11-08] MEDS: Aspirin 81 MG Tab.EC PO SCH (08:16)
[2024-11-08] MEDS ORDERED: cefTRIAXone 2 GM Vial IVPUSH SCH (16:00)
== END 2024-11-08 11:04 | DRG 871 ==
LOC: KA.ED 12:25 → KA.MS 16:25
PROVIDERS: ADMIT Internal Medicine; ATTEND Internal Medicine
DX: A41.9 Sepsis, unspecified organism (principal); J15.0 Pneumonia due to Klebsiella pneumoniae; E87.20 Acidosis, unspecified; R04.2 Hemoptysis; D72.828 Other elevated white blood cell count; F02.83 Dementia in other diseases classified elsewhere, unspecified severity, with mood disturbance; F02.84 Dementia in other diseases classified elsewhere, unspecified severity, with anxiety; I27.82 Chronic pulmonary embolism; N17.9 Acute kidney failure, unspecified; G93.40 Encephalopathy, unspecified; J44.0 Chronic obstructive pulmonary disease with (acute) lower respiratory infection; R65.20 Severe sepsis without septic shock; R65.10 Systemic inflammatory response syndrome (SIRS) of non-infectious origin without acute organ dysfunction; Z66 Do not resuscitate; G83.9 Paralytic syndrome, unspecified; H54.7 Unspecified visual loss; E78.2 Mixed hyperlipidemia; K21.9 Gastro-esophageal reflux disease without esophagitis; N40.0 Benign prostatic hyperplasia without lower urinary tract symptoms; I12.9 Hypertensive chronic kidney disease with stage 1 through stage 4 chronic kidney disease, or unspecified chronic kidney disease; N18.9 Chronic kidney disease, unspecified; M19.90 Unspecified osteoarthritis, unspecified site; E78.00 Pure hypercholesterolemia, unspecified; G30.9 Alzheimer's disease, unspecified; E87.5 Hyperkalemia; D53.9 Nutritional anemia, unspecified; Z79.01 Long term (current) use of anticoagulants; Z79.82 Long term (current) use of aspirin; Z79.1 Long term (current) use of non-steroidal anti-inflammatories (NSAID); Z79.2 Long term (current) use of antibiotics; Z90.49 Acquired absence of other specified parts of digestive tract; Z86.73 Personal history of transient ischemic attack (TIA), and cerebral infarction without residual deficits; Z86.0100 Personal history of colon polyps, unspecified; Z87.81 Personal history of (healed) traumatic fracture; Z90.89 Acquired absence of other organs; Z79.51 Long term (current) use of inhaled steroids; Z91.048 Other nonmedicinal substance allergy status; Z98.890 Other specified postprocedural states; Z88.5 Allergy status to narcotic agent; Z79.899 Other long term (current) drug therapy; Z88.0 Allergy status to penicillin; Z88.8 Allergy status to other drugs, medicaments and biological substances
CPT/HCPCS: 36415; 51701; 70450; 71045; 71275; 80048; 80053; 82607; 83605; 85025; 87040; 87070; 87186; 87205; 87428-QW; 96361; 96374; 99223-GT; 99232-GT; 99233-GT; 99239-GT; 99284; 99285-25; A9270-GY; J0696; J3490; J7030; Q3014; Q9967